=== PATIENT | female | born 2000 | race Hispanic/Latino ===

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

== ENCOUNTER 2019-08-07 10:55 | Inpatient (IN) | payer MEDICAID ==
[~2019-08-07] VITALS: Ht 162.6 cm; Wt 84.8 kg
[2019-08-07] MEDS ORDERED: DINOPROSTONE 10 MG VAGINAL SUPP VG SCH (11:30)
[2019-08-07 11:32] LABS: APPEARANCE,URINE CLEAR (CLEAR); BILIRUBIN,URINE NEGATIVE (NEGATIVE); COLOR,URINE YELLOW (YELLOW); GLUCOSE, URINE (UA) 100 mg/dL (NEGATIVE); KETONES,URINE NEGATIVE (NEGATIVE); LEUKOCYTE ESTERASE ,URINE TRACE (NEGATIVE); NITRATE,URINE NEGATIVE (NEGATIVE); OCCULT BLOOD,URINE NEGATIVE (NEGATIVE); PH,URINE 6.5 (5.0-8.0); PROTEIN,URINE TRACE mg/dL (NEGATIVE)
[2019-08-07 11:39] LABS: HEMATOCRIT 39.5 % (36-48); MEAN CORPUSCULAR HGB CONC 34.5 g/dL (32.0-36.0); MEAN CORPUSCULAR VOLUME 92.7 fL (80-100); PLATELET COUNT (AUTO) 289 K/uL (130-400); RED BLOOD CELL COUNT(AUTO) 4.26 MIL/uL (4.00-5.50); RED CELL DISTRIBUTION WIDTH 13.6 % (11.0-15.5); WHITE BLOOD COUNT (AUTO) 7.8 K/uL (4.8-10.8)
[2019-08-07 11:45] LABS: BACTERIA,URINE Rare /HPF (None Seen); MUCUS,URINE Rare LPF (None Seen); RBC,URINE 0-1 /HPF (0-1); SQUAMOUS EPITHELIAL CELL,UR Few /HPF (0-2)
[2019-08-07 11:47] LABS: AMPHET/METH SCREEN,URINE NEGATIVE (NEGATIVE); BARBITURATE SCREEN, URINE NEGATIVE (NEGATIVE); BENZODIAZEPINES SCREEN,URINE NEGATIVE (NEGATIVE); CANNABINOID SCREEN,URINE NEGATIVE (NEGATIVE); COCAINE SCREEN,URINE NEGATIVE (NEGATIVE); OPIATE SCREEN,URINE NEGATIVE (NEGATIVE); PHENCYCLIDINE SCREEN,URINE NEGATIVE (NEGATIVE)
[2019-08-07] MEDS: LACTATED RINGERS 1000ML 1,000 ML IV PRN ×2 (11:58→20:28)
[2019-08-08] MEDS: OXYTOCIN-LR 20 UNITS/1000 ML 1,000 ML IV SCH ×3 (02:26→20:55)
[2019-08-08] MEDS: LACTATED RINGERS 1000ML 1,000 ML IV PRN (03:48)
[2019-08-08] MEDS ORDERED: PROMETHAZINE HCL 25 MG/ML 1ML AMPULE IM SCH ×2 (06:15→09:45)
[2019-08-08] MEDS ORDERED: MEPERIDINE-PF 50 MG/ML SYG IVP SCH ×2 (06:15→09:45)
[2019-08-08] MEDS ORDERED: MEPERIDINE-PF 50 MG/ML SYG ONE (06:18)
[2019-08-08 07:15] LABS: HEPATITIS Bs ANTIGEN SCREEN P Negative (Negative)
[2019-08-08] MEDS ORDERED: EPHEDRINE SULFATE 50 MG/ML AMPULE IVP PRN (12:00)
[2019-08-08] MEDS ORDERED: NALOXONE HCL 0.4 MG/1 ML ML IV PRN (12:00)
[2019-08-08] MEDS ORDERED: LACTATED RINGERS 500 ML 500 ML IV PRN (12:00)
[2019-08-08] MEDS ORDERED: BENZOCAINE/LANOLIN/ALOE VERA 60 ML AEROSOL TP PRN (17:00)
[2019-08-08] MEDS ORDERED: WITCH HAZEL 1 PAD TP PRN (17:00)
[2019-08-08] MEDS ORDERED: LANOLIN 30GM OINTMENT TP PRN (17:00)
[2019-08-08] MEDS ORDERED: MEASLES/MUMPS/RUBELLA VACCINE, LIVE 0.5 ML/VIAL SQ PRN (17:00)
[2019-08-08] MEDS ORDERED: ACETAMINOPHEN 325 MG TAB PO PRN (17:00)
[2019-08-08] MEDS ORDERED: DIPH,PERTUSS(ACELL),TET VAC/PF 0.5 ML VIAL IM PRN (17:00)
[2019-08-08 19:51] VITALS: BP 115/65
[2019-08-08] MEDS ORDERED: PREN-196 PO (19:58)
[2019-08-08] MEDS: DOCUSATE SODIUM 100 MG CAP PO SCH (20:35)
[2019-08-08] MEDS: IBUPROFEN 600 MG TABLET PO PRN (20:36)
[2019-08-08] MEDS ORDERED: FLU VACC QS2019-20 36MOS UP/PF 60 MCG/0.5 ML ML IM ONE (20:45)
[2019-08-08 23:31] VITALS: BP 124/76
[2019-08-09 03:46] VITALS: BP 106/64
[2019-08-09 05:39] LABS: HEMATOCRIT 35.9 % (36-48); MEAN CORPUSCULAR HEMOGLOBIN 31.7 pg (27.0-33.0); MEAN CORPUSCULAR HGB CONC 33.8 g/dL (32.0-36.0); MEAN CORPUSCULAR VOLUME 93.6 fL (80-100); PLATELET COUNT (AUTO) 233 K/uL (130-400); RED BLOOD CELL COUNT(AUTO) 3.83 MIL/uL (4.00-5.50); RED CELL DISTRIBUTION WIDTH 13.5 % (11.0-15.5); WHITE BLOOD COUNT (AUTO) 11.6 K/uL (4.8-10.8)
[2019-08-09 07:26] VITALS: BP 104/59
[2019-08-09] MEDS: DOCUSATE SODIUM 100 MG CAP PO SCH (09:37)
[2019-08-09] MEDS: IBUPROFEN 600 MG TABLET PO PRN ×2 (09:37→17:10)
[2019-08-09 12:10] VITALS: BP 106/59
--- NOTE | 2019-08-09 16:20 | NUR ---
DISCHARGE INSTRUCTIONS READ AND EXPLAINED TO PATIENT. HANDOUTS HIGHLIGHTED AND REVIEWED WITH PATIENT. QUESTIONS INVITED AND ANSWERED. PT VOICED UNDERSTANDING.
--- NOTE | 2019-08-09 16:42 | NUR ---
HX of Anxiety 5yrs ago, +UDS THC on 12/15. Sw met with pt who states she lives with her common law Carlito Shannon 63 in [address] This first child for couple, daughter Trista Shannon. Pt and work at [employer], independent and drive. Pt has Medicaid and WIC. Couple has basic items for NB including car seat and Dr Álvarez will follow baby after dc. Pt has good family support from her grand mother and aunt and his family. Pt's father in [place] and she has no contact with mom since age 1. Pt admits to 1x use of THC right before finding out she was . Pt denies use after confirmation. Pt denies need for resources or referral for substance abuse. Pt admits to dx by PCP of anxiety 5years ago, was on meds at that time, but has had no issues with anxiety since or during . Pt denies any psych care, ideations or suicide attempts. Pt denies hx of abuse, domestic violence, or legal issues.
[2019-08-09 16:45] VITALS: BP 112/64
--- NOTE | 2019-08-09 18:15 | NUR ---
PT LEFT UNIT VIA WHEELCHAIR WITH BABY IN HAND. PERSONAL VEHICLE USED FOR TRANSPORTATION, PT ACCOMPANIED BY SIGNIFICANT OTHER. NO COMPLAINTS OR CONCERNS ADDRESSED ON DISCHARGE.
== END 2019-08-09 18:15 | disposition home or self-care (01) | DRG 560 ==
LOC: LDH 10:55 → WSH 08-08 19:45 → PREOBSVTOIN 08-12 10:53
PROVIDERS: ADMIT Obstetrics & Gynecology; ATTEND Obstetrics & Gynecology
PROC: 10E0XZZ Delivery of Products of Conception, External Approach (ICD-10-PCS; principal; 2019-08-08)
PROC: 0W8NXZZ Division of Female Perineum, External Approach (ICD-10-PCS; 2019-08-08)
PROC: 3E033VJ Introduction of Other Hormone into Peripheral Vein, Percutaneous Approach (ICD-10-PCS; 2019-08-08)
PROC: 3E0P7VZ Introduction of Hormone into Female Reproductive, Via Natural or Artificial Opening (ICD-10-PCS; 2019-08-08)
PROC: 10907ZC Drainage of Amniotic Fluid, Therapeutic from Products of Conception, Via Natural or Artificial Opening (ICD-10-PCS; 2019-08-08)
PROC: 3E0234Z Introduction of Serum, Toxoid and Vaccine into Muscle, Percutaneous Approach (ICD-10-PCS; 2019-08-08)
PROC: 3E02340 Introduction of Influenza Vaccine into Muscle, Percutaneous Approach (ICD-10-PCS; 2019-08-08)
DX: O69.81X0 Labor and delivery complicated by cord around neck, without compression, not applicable or unspecified (principal); Z37.0 Single live birth; Z23 Encounter for immunization; Z3A.39 39 weeks gestation of pregnancy; Z90.49 Acquired absence of other specified parts of digestive tract
CPT/HCPCS: 36415; 59025; 76805; 76819; 80305; 81001; 85027; 86592; 86850; 86900; 86901; 87340; 90715; A4314; A4351; G0378; J2175; J2550; J2590; J7120; Q2035